=== PATIENT | female | born 1975 | race Hispanic/Latino ===

== ENCOUNTER 2020-10-24 13:52 | Emergency (ER) | payer MEDICAID, OTHER ==
[~2020-10-24] VITALS: Ht 157.5 cm; Wt 108.9 kg
[2020-10-24 15:05] VITALS: BP 135/75
[2020-10-24] MEDS ORDERED: KETOROLAC 30MG VIAL (30MG/ML) IM ONE (16:00)
[2020-10-24] MEDS ORDERED: IBUP-2070 PO (16:14)
== END 2020-10-24 16:33 | disposition home or self-care (01) ==
LOC: EDH 13:52
DX: S92.512A Displaced fracture of proximal phalanx of left lesser toe(s), initial encounter for closed fracture (principal); W22.8XXA Striking against or struck by other objects, initial encounter; Y93.89 Activity, other specified; Y92.89 Other specified places as the place of occurrence of the external cause; Y99.8 Other external cause status
CPT/HCPCS: 73660; 96372; 99283; J1885

== ENCOUNTER 2021-10-14 20:07 | Emergency (ER) | payer MEDICAID ==
[~2021-10-14] VITALS: Ht 165.1 cm; Wt 113.4 kg
[~2021-10-14 20:07] MED LIST: IBUP-2070 PO
[2021-10-14 20:53] VITALS: BP 120/79
[2021-10-14] MEDS ORDERED: IBUP-2070 PO (22:53)
[2021-10-14] MEDS ORDERED: CYCL10TA16 PO (22:53)
[2021-10-14] MEDS ORDERED: KETOROLAC 30MG VIAL (30MG/ML) IM ONE (23:00)
== END 2021-10-14 23:56 | disposition home or self-care (01) ==
LOC: EDH 20:07
DX: M79.601 Pain in right arm (principal); M25.521 Pain in right elbow; M79.631 Pain in right forearm; W01.0XXA Fall on same level from slipping, tripping and stumbling without subsequent striking against object, initial encounter; Y93.89 Activity, other specified; Y92.89 Other specified places as the place of occurrence of the external cause; Y99.8 Other external cause status
CPT/HCPCS: 73030; 73080; 73090; 96372; 99284; J1885

== ENCOUNTER 2021-12-11 10:28 | Emergency (ER) | payer MEDICAID ==
[~2021-12-11] VITALS: Ht 157.5 cm; Wt 117.9 kg
[~2021-12-11 10:28] MED LIST changes: +CYCL10TA16 PO
[2021-12-11] MEDS ORDERED: NAPR375T6 PO (12:05)
[2021-12-11 12:17] VITALS: BP 136/87
== END 2021-12-11 12:27 | disposition home or self-care (01) ==
LOC: EDH 10:28
DX: S92.422A Displaced fracture of distal phalanx of left great toe, initial encounter for closed fracture (principal); S92.354A Nondisplaced fracture of fifth metatarsal bone, right foot, initial encounter for closed fracture; Z79.1 Long term (current) use of non-steroidal anti-inflammatories (NSAID); W01.0XXA Fall on same level from slipping, tripping and stumbling without subsequent striking against object, initial encounter; Y93.01 Activity, walking, marching and hiking; Y92.89 Other specified places as the place of occurrence of the external cause; Y99.8 Other external cause status
CPT/HCPCS: 73610; 73630; 73660